=== PATIENT | male | born 1980 | race Two or more races ===

== ENCOUNTER 2019-01-21 09:54 | Emergency (ER) | payer MEDICAID ==
[~2019-01-21] VITALS: Ht 167.6 cm; Wt 72.6 kg
[~2019-01-21 09:54] MED LIST: RANITIDINE HCL150 MG ORAL; XANAX0.5 MG ORAL
[2019-01-21 09:59] VITALS: BP 112/69
--- NOTE | 2019-01-21 10:05 | NUR ---
ED Nurse Note: Patient walked into ED from home c/o abdominal pain on the lower area and diarrehea for 5 days. at bedside. patient is alert awake x4 ambulatory steady gait, breathing unlabored and even.
--- NOTE | 2019-01-21 10:10 | NUR ---
ED Nurse Note: patient denies any nausea or vomiting.
[2019-01-21] MEDS ORDERED: Lidocaine 2% Visc 15ml soln ORAL ONE (11:30)
[2019-01-21] MEDS ORDERED: Dicyclomine HCl 10mg/5ml oral soln ORAL ONE (11:30)
[2019-01-21] MEDS ORDERED: ZOFRAN4 MG ORAL (11:46)
[2019-01-21] MEDS ORDERED: DICYCLOMINE HCL10 MG ORAL (11:46)
[2019-01-21] MEDS ORDERED: LORazepam Inj 2mg/ml 1ml IV ONE (12:00)
--- NOTE | 2019-01-21 12:05 | NUR ---
ED Nurse Note: patient reports that he feels better, still has discomfort in the stomach but the pain went down to 3-4/10. at bedside.
[2019-01-21 12:14] VITALS: BP 112/69
--- NOTE | 2019-01-21 12:15 | NUR ---
ER DISCHARGE NOTE: Patient is cleared to be discharged per ERMD, pt is aox4, on room air, with stable vital signs. pt was given dc and prescription instructions, pt was able to verbalize understanding, pt id band removed without complications. pt is able to ambulate with steady gait. pt took all belongings.
--- NOTE | 2019-01-22 11:50 | Emergency Room Report ---
History of Present Illness General Chief Complaint: Abdominal Pain Source: Patient Present Illness HPI Patient presented for nausea and diarrhea. Multiple sick contacts at home with similar symptoms. had similar illness which resolved. No bloody stools. No dizziness. Intermittent abdominal cramping lasting several minutes at a time. Watery diarrhea. No fever. Allergies: Coded Allergies: ASPIRIN (Verified Allergy, Unknown, 01/21/19) PENICILLINS (Verified Allergy, Unknown, 01/21/19) Patient History Past Medical History: see triage record Past Surgical History: none Reviewed Nursing Documentation: PMH: Agreed; PSxH: Agreed Nursing Documentation-PMH Past Medical History: No Stated History Review of Systems All Other Systems: negative except mentioned in HPI Physical Exam Vital Signs Date Time Temp Pulse Resp B/P (MAP) Pulse Ox O2 Delivery O2 Flow Rate FiO2 01/21/19 09:59 98.8 68 20 112/69 95 Room Air Sp02 EP Interpretation: reviewed, normal General Appearance: normal inspection, well appearing, no apparent distress, alert, GCS 15, non-toxic Head: atraumatic ENT: normal ENT inspection, hearing grossly normal, normal voice Neck: normal inspection, full range of motion, supple, no bony tend Respiratory: normal inspection, lungs clear, normal breath sounds, no respiratory distress, no retraction, no wheezing Cardiovascular #1: regular rate, rhythm, no edema Gastrointestinal: normal inspection, normal bowel sounds, non tender, soft, non -distended, no guarding, no hernia Genitourinary: no CVA tenderness Musculoskeletal: normal inspection, back normal, normal range of motion Neurologic: normal inspection, alert, oriented x3, responsive, high risk ob III-XII nml as tested, speech normal Psychiatric: normal inspection, judgement/insight normal, mood/affect normal Medical Decision Making Diagnostic Impression: Primary Impression: Gastroenteritis ER Course Patient presented for diarrhea. Differential Diagnosis: A differential includes but is not limited to: viral gastroenteritis, diabetes, appendicitis, infectious process, food allergy, GERD , bowel obstruction, constipation, malrotation, ileus, viral illness, gastroparesis, colitis, clostridium difficile, enteroinvasive infection. The patient presents with loose stools/diarrhea, without evidence for more malignant underlying process or invasive infection. There is no evidence clinically for significant dehydration. The patient denies recent antibiotic use. No fever or reported blood in stool. Based on the patient's current exam and history, including duration of symptoms , the patient appears to be a good candidate for outpatient symptomatic therapy and prompt follow up if symptoms continue or worsen. There is no evidence for more malignant etiologies for the patient's symptoms at this time. I discussed the possibility of more malignant covert etiologies with patient. The patient understands this possibility and will follow up or call immediately with worsening symptoms. Last Vital Signs Date Time Temp Pulse Resp B/P (MAP) Pulse Ox O2 Delivery O2 Flow Rate FiO2 01/21/19 12:14 98.8 20 112/69 95 Room Air 01/21/19 10:08 68 Status: improved Disposition: HOME, SELF-CARE Condition: Stable Scripts Dicyclomine Hcl* (DICYCLOMINE HCL*) 10 Mg Capsule 10 MG ORAL QID, #20 CAP Prov: Ceasar León MD 01/21/19 Ondansetron (Zofran) 4 Mg Tablet 4 MG ORAL Q6H PRN for Nausea & Vomiting, #30 TAB 0 Refills Prov: Ceasar León MD 01/21/19 Departure Forms: Return to Work Return to Work in (Days): 3 Patient Instructions: Abdominal Pain, Adult Ceasar León MD Jan 22, 2019 11:50
== END 2019-01-21 12:14 | disposition home or self-care (01) ==
LOC: EMR 10:47
DX: K52.9 Noninfective gastroenteritis and colitis, unspecified (principal); Z88.6 Allergy status to analgesic agent; Z88.0 Allergy status to penicillin
CPT/HCPCS: 99283